=== PATIENT | female | born 1965 | race Caucasian/White ===

== ENCOUNTER → 2018-07-02 06:57 | Outpatient (CLI) | payer OTHER, SELFPAY ==
--- NOTE | 2018-07-02 07:02 | BI_ITS ---
MAMMOGRAPHY - BILATERAL SCREENING REASON FOR EXAM: Female, 53 years old. Routine annual screening examination. PERTINENT HISTORY: Grandmother with breast cancer. Aunts with breast cancer. TECHNIQUE: Digital bilateral breast david (3D mammographic acquisition) in the CC and MLO projections. 2-D mediolateral oblique (MLO) and craniocaudad (CC) views of both breasts were obtained. CAD: Full Field Digital Mammography with Computer Added Detection was performed. COMPARISON: Comparison is made with prior study dated June 29, 2017 and June 28, 2016. FINDINGS: Breast Composition: The breasts are heterogeneously dense, which may obscure small masses. There are no dominant masses or suspicious calcifications. Once again, a tissue clip marker is seen in the upper central portion of the left breast at the 12:00 position. A tissue clip marker is also seen in the deep upper lateral portion of the right breast. No other significant abnormalities are identified. There has been no significant change since the prior study. BI/SCREENING MAMM (CAD), BILAT IMPRESSION: Stable bilateral screening mammogram. Yearly follow-up mammogram recommended. (A) ASSESSMENT CATEGORY: BIRADS Category 2: Benign. A letter regarding these results will be sent to the patient by the facility within 30 days. Approximately 10% of breast cancers are not detected by mammography. A normal mammogram should not delay biopsy of a clinically suspicious abnormality. [id number] Electronically Signed: Rajiv Cantrell MD at 8:09 EST Tel [phone], Service support ,
== END ==
PROVIDERS: Family Provider Nurse Practitioner Family; PCP Nurse Practitioner Family; Referring Provider Obstetrics & Gynecology; Visit Provider Obstetrics & Gynecology
DX: Z12.31 Encounter for screening mammogram for malignant neoplasm of breast (principal)
CPT/HCPCS: 77063; 77067

== ENCOUNTER → 2019-02-28 10:41 | Outpatient (CLI) | payer OTHER, SELFPAY ==
--- NOTE | 2019-02-28 10:00 | TISS_PTH ---
PATIENT: SHADIA MIRANDA LOC: [facility] U#:[id number] AGE/SX: 60/F ROOM: RE02/28/[address]: Dr. Janene Velasquez MD : 1965 BED: DIS: SPEC #: [id number] RECD: 02/28/19 12:30 STATUS: NIALL LAURA #: [id number] GLENN: 02/28/19 10:[address]: Janene Velasquez DEPT: SURGICAL PATHOLOGY RECD BY: Raheel Alvares ENTERED: 02/28/19 12:31 SP TYPE: Tissue Bx FRANCESCO DR: Lenka Lawson ETHNOGRAPHERLuis Tissues: Labium, NOS Procedures: Surgery Specimen Level IV HEADER OPERATION: Removal of labial mole PRE-OP DIAGNOSIS: [place] TISSUE SUBMITTED: Delmer MICROSCOPIC DIAGNOSIS Labial lesion, biopsy: Fibrous tissue with associated organizing blood clot. AM:ron 03/01/19 MICROSCOPIC DESCRIPTION Slides are reviewed. GROSS DESCRIPTION Received in fixative is one container labeled with the patient's name and designated labial lesion. The specimen consists of a brownish-black piece of skin measuring 0.2 x 0.1 x 0.1 cm. The specimen is totally submitted in one cassette. / SJ:ron 02/28/19 TC:5 CPT: 61713
== END ==
PROVIDERS: PCP Nurse Practitioner Family; Visit Provider Obstetrics & Gynecology
DX: D10.0 Benign neoplasm of lip (principal)
CPT/HCPCS: 88305

== ENCOUNTER → 2019-07-03 06:51 | Outpatient (CLI) | payer OTHER, SELFPAY ==
--- NOTE | 2019-07-03 06:54 | BI_ITS ---
MAMMOGRAPHY - BILATERAL SCREENING REASON FOR EXAM: Female, 54 years old. Routine annual screening examination. PERTINENT HISTORY: Grandmother with breast cancer. Aunt with breast cancer. Prior bilateral stereotactic breast biopsies. TECHNIQUE: Digital bilateral breast emeka (3D mammographic acquisition) in the CC and MLO projections. 2-D mediolateral oblique (MLO) and craniocaudad (CC) views of both breasts were obtained. CAD: Full Field Digital Mammography with Computer Added Detection was performed. COMPARISON: Comparison is made with prior examination in July 02, 2018 and June 29, 2017. FINDINGS: Breast Composition: The breasts are heterogeneously dense, which may obscure small masses. There are no dominant masses or suspicious calcifications. Once again, a tissue clip marker is seen in the upper central portion of the left breast. A tissue clip marker is also seen in the upper lateral portion of the right breast. No other significant abnormalities are identified. There has been no significant change since the prior study. BI/SCREEN MAMM (CAD) W/EMEKA BILAT IMPRESSION: Stable bilateral screening mammogram. Yearly follow-up mammogram recommended. (A) ASSESSMENT CATEGORY: BIRADS Category 2: Benign. A letter regarding these results will be sent to the patient by the facility within 30 days. Approximately 10% of breast cancers are not detected by mammography. A normal mammogram should not delay biopsy of a clinically suspicious abnormality. [id number] Electronically Signed: Rajiv Cantrell, at 8:15 EST , Service support ,
== END ==
PROVIDERS: Family Provider Nurse Practitioner Family; PCP Nurse Practitioner Family; Referring Provider Obstetrics & Gynecology; Visit Provider Obstetrics & Gynecology
DX: Z12.31 Encounter for screening mammogram for malignant neoplasm of breast (principal)
CPT/HCPCS: 77063; 77067

== ENCOUNTER 2020-02-02 15:34 | Emergency (ER) | payer OTHER, SELFPAY ==
[2020-02-02 15:35] VITALS: BP 117/75; PULSE 58; RESP 16; TEMP 36.6; O2SAT 99; BMI 22.4
--- NOTE | 2020-02-02 16:05 | ED.VISSUMM ---
- ER Visit Summary Date of Service: 02/02/20 Chief Complaint: Laceration History of Present Illness: The patient is a 54 F who is right-hand dominant. Tetanus is up-to-date. States that just prior to coming emerge department she cut her left small finger with a kitchen knife while cutting tomatoes. She reports she has an aching pain is 4-10 at worst. She pain-free currently. Is worsened by touching it. Denies any paresthesias distally. Physical Examination: Vitals: Stable. Afebrile. General: Well-nourished and well-developed. Head: Normocephalic atraumatic. Neck: Supple, no lymphadenopathy. No JVD. Nontender. Cardiovascular: Regular rate and rhythm. No murmurs. Respiratory: No respiratory distress. Clear to auscultation bilaterally. Abdominal: Soft, nontender, nondistended, normal bowel sounds. No guarding, rebound, or peritoneal signs. Back: Nontender. Extremities: 0.5 cm superficial skin avulsion from the lateral portion of her left small finger. There is minimal active bleeding. The tissue is avulsed. This cannot be repaired. Skin: Normal color, no rash. Neurologic: Alert and oriented ?3. Cranial nerves II through XII are intact. Normal strength and sensation. Psych: Normal affect. Emergency Department Course and Treatment: Patient was reassured. She had a dressing placed. She is resting comfortably. Treatment Plan: Patient be discharged instructions follow-up with her primary care physician in 10 to 14 days if not improving. Return to the emergency department for any worsening symptoms. Disposition: To home in improved and stable condition. Impression: 1. Left fifth finger 0.5 cm skin avulsion. This note was generated with [employer] dictation software. It may contain incorrect words, spelling, and punctuation that were not noted in review of the chart prior to signing ED Disposition - Plan for ED Patient: Instructions: ED Laceration Small or Superficial Not Stitched Referrals: Lenka Lawson NP-C [Primary Care Provider] - 10-14 Days if not better
== END 2020-02-02 16:12 | disposition home or self-care (01) ==
LOC: ED 15:53
PROVIDERS: Emergency Provider Emergency Medicine; PCP Nurse Practitioner Family
DX: S61.307A Unspecified open wound of left little finger with damage to nail, initial encounter (principal); W26.0XXA Contact with knife, initial encounter; M41.9 Scoliosis, unspecified
CPT/HCPCS: 99282

== ENCOUNTER → 2020-02-17 15:25 | Outpatient (CLI) | payer OTHER, SELFPAY ==
[2020-02-02 15:35] VITALS: BMI 22.4
== END ==
PROVIDERS: PCP Nurse Practitioner Family; Referring Provider Family Medicine Hospice and Palliative Medicine; Visit Provider Family Medicine Hospice and Palliative Medicine
DX: Z11.59 Encounter for screening for other viral diseases (principal)
CPT/HCPCS: 87635; G2023; U0003

== ENCOUNTER → 2020-07-06 07:02 | Outpatient (CLI) | payer OTHER, SELFPAY ==
--- NOTE | 2020-07-06 07:06 | BI_ITS ---
MAMMOGRAPHY - BILATERAL SCREENING REASON FOR EXAM: Female, 55 years old. Routine annual screening examination. PERTINENT HISTORY: TECHNIQUE: Digital bilateral breast emeka (3D mammographic acquisition) in the CC and MLO projections. 2-D mediolateral oblique (MLO) and craniocaudad (CC) views of both breasts were obtained. CAD: Full Field Digital Mammography with Computer Added Detection was performed. COMPARISON: Previous mammogram obtained on 07/03/2019 FINDINGS: Breast Composition: Dense There are no dominant masses or suspicious calcifications. No other significant abnormalities are identified. BI/SCREEN MAMM (CAD) W/EMEKA BILAT IMPRESSION: Stable bilateral screening mammogram. Yearly follow-up mammogram recommended. (A) ASSESSMENT CATEGORY: BIRADS Category 1: Negative. A letter regarding these results will be sent to the patient by the facility within 30 days. Approximately 10% of breast cancers are not detected by mammography. A normal mammogram should not delay biopsy of a clinically suspicious abnormality. [id number] Electronically Signed: Caleb Madison, at 16:24 EST Tel , Service support ,
== END ==
PROVIDERS: PCP Nurse Practitioner Family; Referring Provider Obstetrics & Gynecology; Visit Provider Obstetrics & Gynecology
DX: Z12.31 Encounter for screening mammogram for malignant neoplasm of breast (principal)
CPT/HCPCS: 77063; 77067

== ENCOUNTER → 2021-01-27 08:20 | Outpatient (CLI) | payer OTHER, SELFPAY ==
--- NOTE | 2021-01-27 08:25 | BD_ITS ---
STUDY: DUAL ENERGY X-RAY ABSORPTIOMETRY / DXA REASON FOR EXAM: Female, 55 years old. Z780. Patient is postmenopausal. TECHNIQUE: Bone Mineral Density (BMD) measurements of lumbar spine and bilateral hips were obtained. COMPARISON: Comparison is made with prior study dated 07/22/2015. FINDINGS: Lumbar Spine (L1-L4): g/cm2 (0.960) / T-score (-1.8) / Z-score (-1.1) Findings are suggestive of osteopenia with a moderate fracture risk. Left Femur Total: g/cm2 (0.786) / T-score (-1.8) / Z-score (-1.2) Left Femoral Neck: g/cm2 (0.763) / T-score (-2.0) / Z-score (-1.0) Right Femur Total: g/cm2 (0.779) / T-score (-1.8) / Z-score (-1.2) Right Femoral Neck: g/cm2 (0.737) / T-score (-2.2) / Z-score (-1.2) The T-Scores on the most recent prior examination were: Lumbar Spine (L1-L4): There has been worsening of bone density since the previous examination. Left Femur Total: which represents a worsening of 9.9%. Right Femur Total: which represents a worsening of 13.1%. BD/Dexa Bone Density Study IMPRESSION: The patient is considered osteopenic as outlined below according to World Shravan Organization (WHO) criteria with a high fracture risk. There has been worsening of bone density since the previous examination. Reference Information: The T-score is the number of standard deviations above or below the standard which is normal for young adults at their peak bone mineral density. The World Health Organization (WHO) interprets the T-scores as follows: Above -1 Normal bone density Between -1 and -2.5 Osteopenia Equal to / or below -2.5 Osteoporosis As a practical clinical guideline, osteopenia may be graded as follows: Mild -1 through -1.5 Moderate -1.6 through -2.0 Severe -2.1 through -2.4 The Z-score is the number of standard deviations above or below age-matched controls. A Z-score of less than -1.5 would be considered abnormal. References: 1. NIH Osteoporosis and Related Bone Diseases www osteo.org 2. International Society for Clinical Densitometry www iscd.org 3. National Osteoporosis Foundation www nof.org Electronically Signed: Rajiv Cantrell MD at 9:00 EDT , Service support ,
== END ==
PROVIDERS: PCP Internal Medicine; Referring Provider Student in an Organized Health Care Education/Training Program; Visit Provider Student in an Organized Health Care Education/Training Program
DX: Z13.820 Encounter for screening for osteoporosis (principal)
CPT/HCPCS: 77080

== ENCOUNTER → 2021-05-22 08:03 | Outpatient (CLI) | payer OTHER, SELFPAY ==
[2021-05-22 08:40] LABS: Absolute Lymphocyte Count 2.04 X10^3/uL (0.83-4.51); Absolute Neutrophil Count 2.3 X10^3/uL (2.0-7.7); Basophil# 0.03 X10^3/uL; Basophil% 0.6 % (0-1); Eosinophil# 0.08 X10^3/uL; Eosinophils% 1.6 % (0-5); Hematocrit 40.5 % (37-47); Hemoglobin 13.1 g/dL (12.0-15.0); Lymphocyte # 2.04 X10^3/ul (0.83-4.51); Lymphocyte % 41.5 % (19-41); Mean Corp Hgb Conc 32.3 g/dL (32-36); Mean Corpuscular Hgb 30.7 pg (27.0-32.0); Mean Corpuscular Volume 94.8 fL (81-99); Monocyte# 0.42 X10^3/uL; Monocyte% 8.6 % (0-10); NRBC Flagged by Analyzer 0 % (0-5); Neutrophil # 2.33 X10^3/uL (2.7-7.7); Neutrophil % 47.5 % (47-70); Platelet Count 191 K/mm3 (150-450); RBC Distribution Width CV 12.8 % (11.6-14.6); RBC Distribution Width SD 44.4 fl (35.1-43.9); Red Blood Count 4.27 M/mm3 (4.2-5.4); White Blood Count 4.9 K/mm3 (4.4-11.0)
[2021-05-22 08:47] LABS: AST(SGOT) 20 U/L (15-37); Alanine Aminotransfer ALT/SGPT 20 U/L (13-56); Albumin, Serum 3.8 g/dL (3.2-5.0); Alkaline Phosphatase 79 U/L (45-117); Anion Gap 3 (5-15); BUN 15 mg/dL (7-18); BUN/Creat Ratio 16.3 RATIO (10-20); Chloride 107 mmol/L (98-107); Cholesterol 172 mg/dL (200); Creatinine, Serum 0.92 mg/dL (0.55-1.02); EST Glomerular Filtration Rate 68 mL/min (>60); Est Glom Filt Rate - Afr Amer 82 mL/min (>60); Glucose 98 mg/dL (74-106); High Density Lipoprotein 77 mg/dL; Potassium 3.9 mmol/L (3.5-5.1); Protein, Total 7.8 g/dL (6.4-8.2); Sodium Level 140 mmol/L (136-145); Triglycerides 99 mg/dL; Very Low Density Lipoprotein 20 mg/dL (5-40)
== END ==
PROVIDERS: PCP Internal Medicine; Referring Provider Internal Medicine; Visit Provider Internal Medicine
DX: Z00.00 Encounter for general adult medical examination without abnormal findings (principal)
CPT/HCPCS: 36415; 80053; 80061; 85025

== ENCOUNTER → 2021-07-24 08:37 | Outpatient (CLI) | payer OTHER, SELFPAY ==
--- NOTE | 2021-07-24 08:39 | BI_ITS ---
MAMMOGRAPHY - BILATERAL SCREENING REASON FOR EXAM: Female, 56 years old. Routine annual screening examination. PERTINENT HISTORY: Grandmother with breast cancer. Aunts with breast cancer. History of prior bilateral stereotactic breast biopsies. TECHNIQUE: Digital bilateral breast emeka (3D mammographic acquisition) in the CC and MLO projections. 2-D mediolateral oblique (MLO) and craniocaudad (CC) views of both breasts were obtained. CAD: Full Field Digital Mammography with Computer Added Detection was performed. COMPARISON: Comparison is made with prior study dated 07/06/2020 and 07/03/2019. FINDINGS: Breast Composition: The breasts are heterogeneously dense, which may obscure small masses. There are no dominant masses or suspicious calcifications. A tissue clip marker is once again seen in the upper central aspect of the left breast. A tissue clip marker is also seen in the upper lateral aspect of the right breast. No other significant abnormalities are identified. There has been no significant change since the prior study. BI/SCRN MAMM (CAD)W/EMEKA BILAT IMPRESSION: Stable bilateral screening mammogram. Yearly follow-up mammogram recommended. (A) ASSESSMENT CATEGORY: BIRADS Category 2: Benign. A letter regarding these results will be sent to the patient by the facility within 30 days. Approximately 10% of breast cancers are not detected by mammography. A normal mammogram should not delay biopsy of a clinically suspicious abnormality. [id number] Electronically Signed: Rajiv Cantrell MD at 8:34 EST , Service support ,
== END ==
PROVIDERS: PCP Internal Medicine; Visit Provider Student in an Organized Health Care Education/Training Program
DX: Z12.31 Encounter for screening mammogram for malignant neoplasm of breast (principal); Z80.3 Family history of malignant neoplasm of breast
CPT/HCPCS: 77063; 77067

== ENCOUNTER → 2022-07-29 | Outpatient (CLI) | payer OTHER, SELFPAY ==
--- NOTE | 2022-07-29 08:46 | BI_ITS ---
MAMMOGRAPHY - BILATERAL SCREENING REASON FOR EXAM: Female, 57 years old. Routine annual screening examination. PERTINENT HISTORY: Grandmother with breast cancer. Aunts with breast cancer. TECHNIQUE: Digital bilateral breast emeka (3D mammographic acquisition) in the CC and MLO projections. 2-D mediolateral oblique (MLO) and craniocaudad (CC) views of both breasts were obtained. CAD: Full Field Digital Mammography with Computer Added Detection was performed. COMPARISON: Comparison is made with prior study dated 07/24/2021 and 07/06/2020. FINDINGS: Breast Composition: The breasts are heterogeneously dense, which may obscure small masses. There are no dominant masses or suspicious calcifications. A tissue clip marker is once again seen in the upper central portion of the left breast as well as in the upper deep lateral portion of the right breast. Stable small benign appearing bilateral axillary lymph nodes. No other significant abnormalities are identified. There has been no significant change since the prior study. BI/SCRN MAMM (CAD)W/EMEKA BILAT IMPRESSION: Stable bilateral screening mammogram. Yearly follow-up mammogram recommended. (A) ASSESSMENT CATEGORY: BIRADS Category 2: Benign. A letter regarding these results will be sent to the patient by the facility within 30 days. Approximately 10% of breast cancers are not detected by mammography. A normal mammogram should not delay biopsy of a clinically suspicious abnormality. [id number] Electronically Signed: Rajiv Cantrell MD at 15:18 EST ,
== END | disposition home or self-care (01) ==
PROVIDERS: PCP Internal Medicine; Visit Provider Obstetrics & Gynecology
DX: Z12.31 Encounter for screening mammogram for malignant neoplasm of breast (principal); Z80.3 Family history of malignant neoplasm of breast
CPT/HCPCS: 77063; 77067

== ENCOUNTER → 2023-08-04 | Outpatient (CLI) | payer OTHER, SELFPAY ==
--- NOTE | 2023-08-04 11:48 | BI_ITS ---
MAMMOGRAPHY - BILATERAL SCREENING 3-D TOMOSYNTHESIS REASON FOR EXAM: Female, 58 years old. SCREENING PERTINENT HISTORY: Grandmother and aunts with breast cancer. TECHNIQUE: 2-D mammograms and 3-D Tomosynthesis of the breast (s) were performed. CAD was performed. COMPARISON: 07/24/2021 FINDINGS: The breast composition is heterogeneously dense that can obscure small breast masses. Scattered benign calcifications are seen. No dense spiculated masses or suspicious microcalcifications are identified. No architectural distortion is identified. There is no skin thickening or retraction. Biopsy clips again noted in each breast There has been no significant change since the prior study. BI/SCRN MAMM (CAD)W/EMEKA BILAT IMPRESSION: No mammographic signs of malignancy. Routine yearly mammograms recommended. ASSESSMENT CATEGORY: BIRADS Category 2: Benign. A letter regarding these results will be sent to the patient by the facility within 30 days. FOLLOW UP RECOMMENDATION: Yearly follow up mammogram recommended. (A) Approximately 10% of breast cancers are not detected by mammography. A normal mammogram should not delay biopsy of a clinically suspicious abnormality. Electronically Signed: Mina Rojas MD at 12:06 EST ,
== END | disposition home or self-care (01) ==
LOC: OPBI 11:48
PROVIDERS: PCP Internal Medicine; Referring Provider Nurse Practitioner; Visit Provider Nurse Practitioner
DX: Z12.31 Encounter for screening mammogram for malignant neoplasm of breast (principal); Z80.3 Family history of malignant neoplasm of breast
CPT/HCPCS: 77063; 77067

== ENCOUNTER 2023-12-02 10:48 | Emergency (ER) | payer OTHER, SELFPAY ==
[2023-12-02 10:48] VITALS: BP 123/75; PULSE 72; RESP 16; TEMP 36.2; O2SAT 100; BMI 23.1
--- NOTE | 2023-12-02 11:00 | RAD_ITS ---
EXAM: XR LUMBOSACRAL SPINE, 2 OR 3 VIEWS CLINICAL INDICATION: injured lifting a patient. TECHNIQUE: Frontal and lateral views of the lumbar spine and sacrum. COMPARISON: No relevant prior studies available. FINDINGS: VERTEBRAE: Unremarkable. Preserved vertebral body height. No fracture. No spondylolisthesis. Preservation of the normal lumbar lordosis. No significant facet arthropathy. DISC SPACES: No acute findings. Disc spaces are maintained. GASTROINTESTINAL TRACT: Unremarkable as visualized. Included bowel gas pattern is non-obstructive. RAD/Lumbar Spine 2 or 3 Views IMPRESSION: No suspicious acute fracture or malalignment of the lumbar spine. Electronically Signed: Fred Flores MD at 11:24 EDT ,
--- NOTE | 2023-12-02 11:02 | NURSING ---
[facility], [facility] CL[facility], CALLED. SHE IS ON HER WAY OVER
--- NOTE | 2023-12-02 11:02 | ED.VIS.BACK ---
HPI History of Present Illness Chief Complaint: Back Informant: patient Onset/Context/Timing Onset: Today Context: Sudden Onset Injury: lifting Timing: Continuous Quality: Sharp Location: Lumbar Current Severity: Moderate Worsened by: improves with Movement and Bending Relieved by: Remaining Still Associated Symptoms Associated Symptoms: Negative for Numbness, Tingling, Radiation to Right Leg, Radiation to Left Leg, Fever, Abdominal Pain, Dysuria, Unable to Ambulate, Unable to Transfer, Urinary Retention, Urinary Incontinence, Constipation or Fecal Incontinence Narrative Narrative: 58-year-old female history of osteoporosis, arthritis and scoliosis but no prior back surgery. 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 She has had pain since that time. This occurred about an hour ago. She denies any fall or other trauma. She denies any weakness or numbness to her legs. Prior similar symptoms: Yes Recent Illness/Hospitalization: No PFSH PFSH Home Medications metaxalone 800 mg tablet 800 mg PO TID PRN muscle pain 7 days #21 tabs 12/02/23 [Rx Last Taken Unknown] Allergy/AdvReac Type Severity Reaction Status Date / Time bee venom protein (honey bee) Allergy Swelling Verified 12/02/23 10:50 egg Allergy Upset Verified 12/02/23 10:50 Stomach Social History Smoking Status: Never smoker ROS ROS ED ROS Narrative Denies recent illness. Review of Systems ROS Unobtainable: Denies due to encephalopathy Constitutional Constitutional ED: Denies chills or fever(s) Eyes Eyes: Denies blurry vision ENT ENT ED: Denies ear pain Cardiovascular Cardiovascular: Denies chest pain Respiratory/Chest Respiratory/Chest: Denies dyspnea Gastrointestinal Gastrointestinal: Denies abdominal pain, constipation, diarrhea, melena, nausea or vomiting Genitourinary Genitourinary ED: Denies dysuria or hematuria Musculoskeletal Musculoskeletal: Reports back pain; Denies arthralgias, myalgias or neck pain Integumentary Denies abscess or Abrasions Neurologic Neurologic: Denies headache(s) Psychiatric Psychiatric: Denies anxiety or depression Endocrine Endocrinology: Denies cold intolerance or heat intolerance Hematologic/Lymphatic Hematologic/Lymphatic: Denies easy bleeding or easy bruising Allergic/Immunologic Allergic/Immunologic ED: Denies mouth swelling, tongue swelling or urticaria EXAM Physical Exam Narrative Exam Narrative: All prior [id number] female. Sitting upright in bed. Vital signs are stable and afebrile. H EENT exam unremarkable. Neck nontender. Lungs clear. Heart regular rhythm. Chest wall and ribs nontender. Abdomen soft nontender. Moving all 4 extremities. 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 Dorsi plantarflexion intact. Negative straight leg raise. No cauda equina. No saddle anesthesia. Normal medial thigh sensation. Normal range of motion. Back cervical thoracic spine nontender. Her lumbar spine primarily across her iliac crest paravertebral soft tissues she has tenderness. There is no ecchymosis or bruising or signs of trauma. Neurologic exam is normal. Normal motor strength and sensation. No weakness or numbness. Const Vital Signs: 12/02/23 10:48 Temperature 97.2 F L Temperature Source Temporal Pulse Rate 72 Respiratory Rate 16 Blood Pressure 123/75 H Blood Pressure Mean 91 Pulse Ox 100 Oxygen Delivery Method Room Air Positive well nourished and well developed; Negative for obese, cachectic, contractures or unkempt General Appearance ED: well developed and NAD; Negative for unkempt, cachectic, contractures or pallor Nutritional Appearance: Negative for cachectic or obese HEENT Reports moist mucous membranes; Denies dry mucous membranes Negative for trauma or tenderness Mouth ED: No dry mucous membranes Mouth: No dry mucous membranes Eyes PERRL and EOMs intact bilaterally General Eye ED: Negative for pale conjunctiva or scleral icterus Neck no lymphadenopathy, supple and no JVD General: Negative for tenderness Thyroid: Negative for other Chest Wall Chest: Negative for other Resp normal respiratory effort and clear to auscultation bilaterally Effort and Inspection: Negative for pain with movement Auscultation: Negative for rales, rhonchi or wheezes Cardio regular rate, regular rhythm, S1 normal heart sound, S2 normal heart sound and no murmurs Palpation: Negative for palpable S3 Rate: Negative for bradycardia or tachycardic Rhythm: Negative for abnormal rhythm Bruits: Negative for other GI normal to inspection, nondistended, normoactive bowel sounds, soft to palpation, non-tender, non-distended and no masses Inspection: Negative for abdominal distention Palpation: Negative for tender, guarding, pulsatile mass or rebound tenderness present Back/Spine normal to inspection; Negative for no thoracic nor lumbar tenderness Back/Spine Narrative: Lumbar and paralumbar soft tissue tenderness across iliac crest. No signs of trauma. No redness or warmth. No bruising. Cervical Spine: Negative for cervical spine tenderness Thoracic Spine / Upper Back: paraspinal muscle tenderness Lumbar Spine / Lower Back: straight leg raise negative bilaterally Extremity normal to inspection and no clubbing, cyanosis or edema General Extremety ED: Negative for edema or tenderness General Extremity: Negative for edema Neuro oriented x3 Sensorium / Orientation: alert; Negative for confused, lethargic or stuporous Sensory Exam: No other Motor Exam: strength 5/5 throughout; Negative for strength abnormal Psych mental status grossly normal Appearance: Negative for unkempt Attitude: No agitated Mood & Affect: Negative for depressed, sad or tearful Skin no rashes or lesions noted and no wounds General Skin Exam: Negative for jaundice or pallor Lesions: No lesion noted Rashes: No rashes noted Trauma: Negative for abrasion or puncture Wounds: Negative for wounds noted Image ED - Body Diagram Man: 1. Describing pain and mild tenderness to the lumbar and paralumbar soft tissues along the top of the iliac crest. MDM MDM MDM Narrative Medical decision making narrative: 58-year-old female strained her lower back at work today. She is requesting x-rays due to concern that she fell and heard a crack. Exam is consistent with myofascial lumbar strain. Lower extremities are neurovascularly intact. She will be given Tylenol for pain. Repeat exam unchanged. Patient be discharged home. Treated as lumbar strain. Repeat exam patient doing well. She will be discharged home. Treat as lumbar strain. Prescription for Skelaxin as needed for muscle spasms. Light duty at work. Outpatient follow-up with corporate care. Patient is comfortable with the plan. History & Record Review Discussion w/independent historian: Patient Additional record(s) reviewed:: Prior inpatient record, Prior outpatient record, Prior ED visit and Prior labs Radiography Diagnostic Testing: Clinical Impression(s) from Imaging Studies Lumbar Spine X-Ray 12/02/23 11:00 IMPRESSION: No suspicious acute fracture or malalignment of the lumbar spine. Electronically Signed: Fred Flores MD at 11:24 EDT Reading Location ID and State: [address] [place] [address] , Service support , LS-spine x-ray, 3 views, interpreted by myself and the radiologist shows no acute abnormality. No fracture. No avulsion. Good disc space height. Discharge Plan Triage Chief Complaint: Back ED Provider: Jose Ahmadi Dx/Rx/DC Orders Clinical Impression: Encounter related to worker's compensation claim, Acute lumbar myofascial strain Instructions: ED Back Sprain/Strain Prescriptions: New metaxalone 800 mg tablet 800 mg PO TID PRN (Reason: muscle pain) 7 Days Qty: 21 0RF Primary Care Provider: Malu Brown Referrals: [facility], [place] [Group of Physicians] - Malu Brown MD [Primary Care Provider] - Activity Restrictions/Additional Instructions: He strained muscles in your lower back. Hot bath and soak, shower, hot tub or whirlpool tub and massage. Motrin for pain and inflammation and Tylenol for pain. Muscle relaxant Skelaxin for muscle spasms. 1 pill 3 times a day. [facility] Disposition Disposition: Home, Self Care
[2023-12-02] MEDS: Acetaminophen 500 MG Tablet 1000 MG PO (11:06)
[2023-12-02 11:51] VITALS: BP 142/68; PULSE 80; RESP 16; TEMP 36.6; O2SAT 99
== END 2023-12-02 11:52 | disposition home or self-care (01) ==
PROVIDERS: Emergency Provider Emergency Medicine; PCP Internal Medicine; Visit Provider Emergency Medicine
DX: S39.012A Strain of muscle, fascia and tendon of lower back, initial encounter (principal); X58.XXXA Exposure to other specified factors, initial encounter; Y99.0 Civilian activity done for income or pay; Y92.89 Other specified places as the place of occurrence of the external cause
CPT/HCPCS: 72100; 99282

== ENCOUNTER 2025-07-02 16:19 | Emergency (ER) | payer OTHER, SELFPAY ==
[2025-07-02 16:22] VITALS: BP 98/69; PULSE 98; RESP 18; TEMP 36; O2SAT 100
[2025-07-02 16:35] VITALS: BMI 23.7
[2025-07-02 16:38] VITALS: BP 115/76; PULSE 93; RESP 18; O2SAT 100
--- NOTE | 2025-07-02 17:10 | RAD_ITS ---
PROCEDURE: ANKLE MIN 3 VIEWS 07/02/2025 REASON FOR EXAM: ACUTE ATRAUMATIC PAIN AND SWELLING TECHNIQUE: Procedure Code: RADANK Modality: DX Procedure: ANKLE MIN 3 VIEWS Laterality: Left COMPARISON: None. FINDINGS: No acute fracture or dislocation. Alignment is anatomic. Preserved joint spaces. No aggressive osseous lesion. No marked soft tissue swelling or radiopaque foreign body. RAD/Ankle min 3 Views IMPRESSION: Unremarkable left ankle radiographs. Reading Location: [id number]
--- NOTE | 2025-07-02 17:26 | EX.ED.DYSGE1 ---
HPI History of Present Illness Chief Complaint: Lower Extremity Injury Detail of Chief Complaint: Acute left ankle pain, PFSH PFSH Medical History (Updated 07/02/25 @ 21:[address] Obinna Romero MD) Osteoporosis Home Medications ?Medication ?Instructions ?Recorded ?Last Taken ?Type metaxalone 800 mg tablet 800 mg PO TID PRN muscle pain 7 12/02/23 Unknown Rx days #21 tabs hydrocodone-acetaminophen 5-325mg 1 tab PO Q4H PRN PRN Pain 2 days 07/02/25 Unknown Rx 5mg-325mg #10 TABLETS prednisone 20 mg tablet 60 mg (3 x 20 mg) PO DAILY #12 07/02/25 Unknown Rx TABLETS Allergy/AdvReac Type Severity Reaction Status Date / Time bee venom protein (honey bee) Allergy Swelling Verified 07/02/25 16:22 egg Allergy Upset Verified 07/02/25 16:22 Stomach Social History Smoking Status: Never smoker EXAM Physical Exam Const Vital Signs: 07/02/25 16:22 07/02/25 16:38 07/02/25 20:05 Temperature 96.8 F L Temperature Source Temporal Pulse Rate 98 93 Respiratory Rate 18 18 96 H Blood Pressure 98/69 115/76 125/60 H Blood Pressure Mean 78 89 81 Pulse Ox 100 100 Oxygen Delivery Method Room Air Room Air 07/02/25 21:00 Temperature Temperature Source Pulse Rate 80 Respiratory Rate Blood Pressure 98/66 Blood Pressure Mean 76 Pulse Ox 97 Oxygen Delivery Method MDM MDM MDM Narrative Medical decision making narrative: Differential diagnosis is includes crystal induced monoarticular arthritis, pyogenic monotypic arthritis, monoarticular arthralgia of uncertain etiology. Will obtain x-ray, appropriate blood work which includes CBC, electrolyte panel, ESR, CRP and patient was consented for arthrocentesis of the left ankle. She was explained risk benefits. Lab Data Attestation: I reviewed the patient's lab results. Lab results narrative: White count and differential are normal. ESR is normal. CRP is normal. Electrolytes are normal. No crystals were noted. There is 53 white cells which is insignificant with 578 red cells. Gram stain revealed no organisms. Since there is no evidence infection will treat with burst of steroids. Labs: Laboratory Results - last 24 hr 07/02/25 07/02/25 16:55 17:45 WBC 7.2 RBC 4.26 Hgb 13.5 Hct 39.2 MCV 92.0 MCH 31.7 MCHC 34.4 RDW Std Deviation 43.3 RDW Coeff of Louise 12.7 Plt Count 188 MPV 11.9 Immature Gran % (Auto) 0.100 Neut % (Auto) 59.6 Lymph % (Auto) 30.4 [place] % (Auto) 8.2 Eos % (Auto) 1.0 Baso % (Auto) 0.7 Absolute Neuts (auto) 4.3 Absolute Lymphs (auto) 2.19 Nucleated RBC % 0 ESR 13 Sodium 139 Potassium 4.1 Chloride 102 Carbon Dioxide 26.2 Anion Gap 11 BUN 16 Creatinine 0.94 Estim Creat Clear Calc 61.07 Est GFR (MDRD) Non-Af 70 BUN/Creatinine Ratio 16.9 Glucose 91 Calcium 10.5 Total Bilirubin 0.38 AST 43 H ALT 19 Alkaline Phosphatase 61 C-React Prot Ext Range < 3.00 Total Protein 7.7 Albumin 4.6 Globulin 3.1 Albumin/Globulin Ratio 1.5 Fluid Crystals NO CRYSTALS SEEN Fluid Crystal Source SYNOVIAL Fl Crystal Path Review Will follow Synovial Source LEFT ANKLE Synovial Color Yellow Synovial Appearance Clear Synovial WBC 53 H Synovial RBC 578 H Synovial Tot Cell Ct TNP Radiography Chest X-Ray - ED: Read by ED Physician (Three-view x-ray of the ankle was independently interpreted by me at 1726 as negative for any acute process. There is no fracture, subluxation dislocation. There is no asymmetry of the joint.) Diagnostic Testing: Clinical Impression(s) from Imaging Studies Ankle X-Ray 07/02/25 17:10 IMPRESSION: Unremarkable left ankle radiographs. Reading Location: [facility] Treatment and Re-Evaluation :: Patient and were informed of all laboratory results. Plan is to discharge with a burst of prednisone. Since pharmacies are closed will administer first dose in the emergency department. Also 2-day supply of opiate analgesia Discharge Plan Triage Chief Complaint: Lower Extremity Injury ED Provider: Obinna Romero Dx/Rx/DC Orders Clinical Impression: Monoarticular arthritis, Inability to ambulate due to left ankle or foot, Arthralgia of right ankle Instructions: ED Arthralgia Prescriptions: New hydrocodone-acetaminophen 5-325 mg tablet 1 tab PO Q4H PRN PRN (Reason: Pain) 2 Days Qty: 10 0RF prednisone 20 mg tablet 60 mg PO DAILY Qty: 12 0RF No Action metaxalone 800 mg tablet 800 mg PO TID PRN (Reason: muscle pain) 7 Days Qty: 21 0RF Stand Alone Forms: ED Work / School Excuse Primary Care Provider: Malu Brown Referrals: Malu Brown MD [Primary Care Provider, Internal Medicine] - 3-5 Days if not improving Print Language: Georgian Disposition Disposition: Home, Self Care
[2025-07-02] MEDS: Lidocaine 1% (20 ml mdv) 20 ML Vial INFILT (17:41)
[2025-07-02 17:48] LABS: AST(SGOT) 43 U/L (<=31); Alanine Aminotransfer ALT/SGPT 19 U/L (<=34); Albumin, Serum 4.6 g/dL (3.5-5.0); Alkaline Phosphatase 61 U/L (35-104); Anion Gap 11 (5-15); BUN 16 mg/dL (4-19); BUN/Creat Ratio 16.9 RATIO (10-20); CRP < 3.00 mg/L (0.0-3.0); Calcium,Total 10.5 mg/dL (7.6-11.0); Carbon Dioxide 26.2 mmol/L (21.0-32.0); Chloride 102 mmol/L (98-108); Estimated Creatinine Clearance 61.07 ml/min (50-250); Globulin 3.1 g/dL (2.2-4.2); Glucose 91 mg/dL (70-99); Potassium 4.1 mmol/L (3.3-5.1)
[2025-07-02 17:51] LABS: Hematocrit 39.2 % (37-47); Hemoglobin 13.5 g/dL (12.0-15.0); Immature Granulocytes Count 0.010 X10^3/uL (0.0-0.0); Mean Corp Hgb Conc 34.4 g/dL (32-36); Mean Corpuscular Volume 92.0 fL (81-99); Mean Platelet Vol. 11.9 fl (6.2-12.0); NRBC Flagged by Analyzer 0 % (0-5); Platelet Count 188 K/mm3 (150-450); RBC Distribution Width CV 12.7 % (11.6-14.6); RBC Distribution Width SD 43.3 fl (35.1-43.9); Red Blood Count 4.26 M/mm3 (4.2-5.4); White Blood Count 7.2 K/mm3 (4.4-11.0)
[2025-07-02 20:05] VITALS: BP 125/60; RESP 96
[2025-07-02 20:17] LABS: AUTO B FLUID DILUENT BKGD CT WBC <0.1 RBC <0.01 (W<.1,R<.01); Source / Synovial Fluid LEFT ANKLE
[2025-07-02 20:18] LABS: Appearance /Synovial Fluid Clear (CLEAR); Color / Synovial Fluid Yellow (Pale Yellow)
[2025-07-02 20:19] LABS: RBC /Synovial Fluid 578 /mm3 (0); WBC / Synovial Fluid 53 /mm3 (0)
--- NOTE | 2025-07-02 20:39 | ED.RN ---
Per priscilla Patel for pt to eat
[2025-07-02 21:00] VITALS: BP 98/66; PULSE 80; O2SAT 97
[2025-07-02 21:33] LABS: CRYSTALS, BODY FLUID NO CRYSTALS SEEN
[2025-07-02 21:34] LABS: Source- Body Fluid SYNOVIAL
[2025-07-02 22:16] VITALS: BP 138/68; PULSE 85; RESP 18; TEMP 36.4; O2SAT 100
[2025-07-02 22:23] LABS: Monocyte /Synovial Fluid 15 %
== END 2025-07-02 22:17 | disposition home or self-care (01) ==
PROVIDERS: Emergency Provider Emergency Medicine; PCP Internal Medicine; Visit Provider Emergency Medicine
DX: M13.871 Other specified arthritis, right ankle and foot (principal)
CPT/HCPCS: 73610; 80053; 85025; 85652; 86140; 87070; 87075; 87205; 89050; 89051; 89060; 99283; A4216